=== PATIENT | female | born 1990 | race Caucasian/White ===

== ENCOUNTER 2018-01-30 13:11 | Outpatient (CLI) | payer MEDICAID ==
[2018-01-30 14:44] LABS: ADD UMIC YES; UR ASCORBIC ACID NEGATIVE (NEGATIVE); UR BACTERIA FEW /HPF (NONE SEEN); UR BILIRUBIN (Dip) NEGATIVE (NEGATIVE); UR BLOOD (Dip) 1+ mg/dL (NEGATIVE); UR CLARITY CLEAR (CLEAR); UR COLOR YELLOW (YELLOW); UR GLUCOSE (Dip) NEGATIVE (NEGATIVE); UR KETONES (Dip) NEGATIVE (NEGATIVE); UR LEUKOCYTE ESTERASE (Dip) 1+ Leu/ul (NEGATIVE); UR MUCUS FEW /HPF (NONE SEEN); UR NITRITE (Dip) NEGATIVE (NEGATIVE); UR RBC 1 /HPF (0-5); UR SPECIFIC GRAVITY (Dip) 1.016 (1.003-1.030); UR SQUAMOUS EPITHELIAL CELL FEW /HPF (FEW); UR TOTAL PROTEIN (Dip) NEGATIVE (NEGATIVE); UR UROBILINOGEN (Dip) NEGATIVE (NEGATIVE); UR WBC 5 /HPF (0-5)
== END 2018-01-30 15:50 | disposition home or self-care (01) ==
LOC: OBT 13:11 → L-D 13:11 → OBT 15:50
DX: O62.9 Abnormality of forces of labor, unspecified (principal); Z3A.32 32 weeks gestation of pregnancy
CPT/HCPCS: 81001; 82731

== ENCOUNTER 2018-02-13 10:41 | Outpatient (CLI) | payer MEDICAID | END 2018-02-13 12:56 | disposition home or self-care (01) | LOC: OBT 10:41 → L-D 10:41 → OBT 12:56 | DX: O62.9 Abnormality of forces of labor, unspecified (principal); O24.429 Gestational diabetes mellitus in childbirth, unspecified control; Z3A.34 34 weeks gestation of pregnancy | CPT/HCPCS: 76818 ==

== ENCOUNTER 2018-03-10 15:16 | Inpatient (IN) | payer MEDICAID ==
[~2018-03-10 15:16] MED LIST: EPHEDrine SULFATE 50 MG/5 ML SYG
[2018-03-10 16:45] LABS: ADD MAN DIFF? NO
[2018-03-10 16:48] LABS: BASOPHILS % 0.3 % (0.0-2.0); EOSINOPHILS # 0.1 10^3/ul (0.0-0.5); EOSINOPHILS % 0.4 % (0.0-7.0); HEMATOCRIT 38.5 % (37.0-47.0); HEMOGLOBIN 12.9 g/dl (12.0-16.0); LYMPHOCYTES # 2.2 10^3/ul (0.8-2.9); LYMPHOCYTES % 19.9 % (15.0-51.0); MEAN CORPUSCULAR HEMOGLOBIN 27.6 pg (29.0-33.0); MEAN CORPUSCULAR HGB CONC 33.5 g/dl (32.0-37.0); MEAN CORPUSCULAR VOLUME 82.3 fl (82.0-101.0); MEAN PLATELET VOLUME 10.9 fl (7.4-10.4); MONOCYTE # 0.8 10^3/ul (0.3-0.9); MONOCYTES % 7.3 % (0.0-11.0); NEUTROPHILS % 71.3 % (39.0-77.0); PLATELET COUNT 270 10^3/UL (140-415); RED BLOOD COUNT 4.68 10^6/ul (4.20-5.40); RED CELL DISTRIBUTION WIDTH 13.4 % (11.5-14.5)
[2018-03-10 16:48] LABS: WHITE BLOOD COUNT 11.3 10^3/ul (4.8-10.8)
[2018-03-10 17:07] LABS: PROTIME 11.1 Sec (11.9-14.9); PT RATIO 0.9
[2018-03-10 17:08] LABS: PARTIAL THROMBOPLASTIN TIME 25.8 Sec (25.0-35.0)
[2018-03-10 17:11] LABS: ALANINE AMINOTRANSFERASE 14 IU/L (13-69); ALBUMIN 3.5 g/dl (3.3-4.9); ALBUMIN/GLOBULIN RATIO 1.09; ALKALINE PHOSPHATASE 230 IU/L (42-121); ANION GAP 14 (8-16); ASPARTATE AMINO TRANSFERASE 18 IU/L (15-46); BILIRUBIN,INDIRECT 0.1 mg/dl (0-1.1); BILIRUBIN,TOTAL 0.1 mg/dl (0.2-1.3); BLOOD UREA NITROGEN 9 mg/dl (7-20); CALCIUM 9.7 mg/dl (8.4-10.2); CARBON DIOXIDE 22 mmol/L (21-31); CHLORIDE 106 mmol/L (97-110); CREATININE 0.56 mg/dl (0.44-1.00); GLUCOSE 91 mg/dl (70-220); POTASSIUM 4.2 mmol/L (3.5-5.1); SODIUM 138 mmol/L (135-144); TOTAL PROTEIN 6.7 g/dl (6.1-8.1); URIC ACID 5.8 mg/dl (3.1-7.9)
[2018-03-10 17:18] LABS: ADD UMIC YES; UR ASCORBIC ACID NEGATIVE (NEGATIVE); UR BILIRUBIN (Dip) NEGATIVE (NEGATIVE); UR BLOOD (Dip) NEGATIVE (NEGATIVE); UR CLARITY CLEAR (CLEAR); UR COLOR YELLOW (YELLOW); UR GLUCOSE (Dip) NEGATIVE (NEGATIVE); UR KETONES (Dip) NEGATIVE (NEGATIVE); UR LEUKOCYTE ESTERASE (Dip) TRACE Leu/ul (NEGATIVE); UR NITRITE (Dip) NEGATIVE (NEGATIVE); UR RBC 0 /HPF (0-5); UR SPECIFIC GRAVITY (Dip) 1.013 (1.003-1.030); UR TOTAL PROTEIN (Dip) NEGATIVE (NEGATIVE); UR UROBILINOGEN (Dip) NEGATIVE (NEGATIVE); UR WBC 1 /HPF (0-5)
[2018-03-10] MEDS: ACETAMINOPHEN 325 MG TAB PO (18:40)
[2018-03-10] MEDS ORDERED: METHYLERGONOVINE 0.2 MG INJ IM ×2 (20:30→21:00)
[2018-03-10] MEDS ORDERED: MISOPROSTOL 200 MCG TAB PR ×2 (20:30→21:00)
[2018-03-10] MEDS ORDERED: OXYTOCIN 30 UNITS/LR 500 ML IV ×2 (20:30→21:00)
[2018-03-10] MEDS ORDERED: BUTORPHANOL 2 MG INJ IV (20:30)
[2018-03-10] MEDS: MISOPROSTOL 100 MCG TAB PO (20:30)
[2018-03-10] MEDS ORDERED: LIDOCAINE 1% (MPF) 30 ML INJ INJ (20:30)
[2018-03-10] MEDS ORDERED: CARBOPROST 250 MCG INJ IM ×2 (20:30→21:00)
[2018-03-10] MEDS ORDERED: IBUPROFEN 600 MG TAB PO (20:30)
[2018-03-10] MEDS: LACTATED RINGER'S 1,000 ML IV* ×2 (20:56→22:14)
[2018-03-10] MEDS ORDERED: CA GLUCONATE (GM) 10% 10ML INJ IV (21:00)
[2018-03-10] MEDS ORDERED: ACCU-CHEK XX (21:00)
[2018-03-10 21:02] LABS: ADD MAN DIFF? NO
[2018-03-10] MEDS: MAGNESIUM SULFATE 4 GM/100 ML 100 ML IV (21:08)
[2018-03-10 21:26] LABS: INR 0.81; PROTIME 11.2 Sec (11.9-14.9); PT RATIO 0.9
[2018-03-10 21:27] LABS: PARTIAL THROMBOPLASTIN TIME 26.1 Sec (25.0-35.0)
[2018-03-10] MEDS: MAGNESIUM SULFATE 20 GM/500 ML 500 ML IV (21:40)
[2018-03-10 21:42] LABS: WHITE BLOOD COUNT 12.8 10^3/ul (4.8-10.8)
[2018-03-10 21:42] LABS: BASOPHIL # 0.1 10^3/ul (0.0-0.1); BASOPHILS % 0.4 % (0.0-2.0); EOSINOPHILS # 0.1 10^3/ul (0.0-0.5); EOSINOPHILS % 0.5 % (0.0-7.0); HEMATOCRIT 38.3 % (37.0-47.0); HEMOGLOBIN 13.2 g/dl (12.0-16.0); LYMPHOCYTES % 23.1 % (15.0-51.0); MEAN CORPUSCULAR HEMOGLOBIN 28.6 pg (29.0-33.0); MEAN CORPUSCULAR HGB CONC 34.5 g/dl (32.0-37.0); MEAN CORPUSCULAR VOLUME 83.1 fl (82.0-101.0); MEAN PLATELET VOLUME 11.1 fl (7.4-10.4); MONOCYTE # 0.9 10^3/ul (0.3-0.9); MONOCYTES % 7.1 % (0.0-11.0); NEUTROPHIL # 8.7 10^3/ul (1.6-7.5); PLATELET COUNT 263 10^3/UL (140-415); RED BLOOD COUNT 4.61 10^6/ul (4.20-5.40); RED CELL DISTRIBUTION WIDTH 13.2 % (11.5-14.5)
[2018-03-10] MEDS: LABETALOL HCL 20MG INJ IV (21:42)
[2018-03-10] MEDS ORDERED: morphine SULFATE/PF (10 MG/10 ML) INJ (21:51)
[2018-03-10] MEDS ORDERED: BUPIVACAINE 0.75%/DEXT (SPINAL) 2 ML INJ (21:51)
[2018-03-10] MEDS ORDERED: PHENYLephrine (100 MCG/ML) 5ML SYG ×2 (21:51→23:24)
[2018-03-10] MEDS ORDERED: OXYTOCIN 10 UNIT INJ (21:51)
[2018-03-10 21:56] LABS: HEPATITIS B SURFACE ANTIGEN NEGATIVE (NEGATIVE)
[2018-03-10] MEDS: AMPICILLIN 2 GM/NS (PMX) 100 ML IV (22:00)
[2018-03-10] MEDS: ONDANSETRON 4 MG INJ IV (22:06)
[2018-03-10] MEDS: METOCLOPRAMIDE 10 MG INJ IV (22:06)
[2018-03-10] MEDS: CITRIC ACID/SODIUM CITRATE 15 ML CUP PO (22:07)
[2018-03-10] MEDS ORDERED: KETOROLAC 30 MG INJ (23:07)
[2018-03-10] MEDS ORDERED: DEXAMETHASONE 4 MG/ML 1 ML INJ (23:07)
[2018-03-10] MEDS ORDERED: ACETAMINOPHEN 500 MG TAB PO (23:30)
[2018-03-10] MEDS ORDERED: morphine 2 MG INJ IV ×2 (23:30)
[2018-03-10] MEDS ORDERED: HYDROCODONE/APAP (5/325) TAB PO (23:30)
[2018-03-10] MEDS ORDERED: ONDANSETRON 4 MG INJ IV (23:30)
[2018-03-10] MEDS ORDERED: HYDROmorphONE 0.5 MG/0.5 ML SYG IV ×2 (23:30)
[2018-03-10] MEDS ORDERED: NALBUPHINE HCL (10 MG/1 ML) INJ IV (23:30)
[2018-03-10] MEDS ORDERED: NALOXONE (0.4 MG/ML) INJ IV (23:30)
[2018-03-10] MEDS ORDERED: DIPHENHYDRAMINE 50 MG INJ IV (23:30)
[2018-03-10] MEDS: CEFAZOLIN 2 GM/50 ML (PMX) 50 ML IV (23:34)
[2018-03-10] MEDS: OXYTOCIN 30 UNITS/LR 500 ML IV (23:35)
[2018-03-11] MEDS ORDERED: DEXTROSE 5%-LR 1,000 ML IV (00:16)
[2018-03-11] MEDS ORDERED: METHYLERGONOVINE 0.2 MG TAB PO (00:30)
[2018-03-11] MEDS ORDERED: METHYLERGONOVINE 0.2 MG INJ IM (00:30)
[2018-03-11] MEDS ORDERED: AMPICILLIN 1 GM/NS (PMX) 50 ML IV (00:30)
[2018-03-11] MEDS ORDERED: MISOPROSTOL 200 MCG TAB PR (00:30)
[2018-03-11] MEDS ORDERED: LANOLIN 7 GM TUBE TOP (00:30)
[2018-03-11] MEDS ORDERED: CARBOPROST 250 MCG INJ IM (00:30)
[2018-03-11] MEDS: OXYTOCIN 30 UNITS/LR 500 ML IV ×3 (00:43→10:21)
[2018-03-11 01:14] LABS: MAGNESIUM 4.1 mg/dl (1.7-2.5)
[2018-03-11] MEDS: SENNA/DOCUSATE NA (8.6MG/50MG) TAB PO ×2 (08:28→22:23)
[2018-03-11] MEDS: MAGNESIUM SULFATE 20 GM/500 ML 500 ML IV (08:30)
[2018-03-11 08:53] LABS: MAGNESIUM 4.8 mg/dl (1.7-2.5)
[2018-03-11 13:31] LABS: MAGNESIUM 5.1 mg/dl (1.7-2.5)
[2018-03-11 15:12] LABS: RAPID PLASMA REAGIN NONREACTIVE (NR)
[2018-03-11 17:54] LABS: MAGNESIUM 4.3 mg/dl (1.7-2.5)
[2018-03-11] MEDS: KETOROLAC 30 MG INJ IV (22:18)
[2018-03-11] MEDS ORDERED: OXYCODONE/ACETAMINOPHEN (5/325) TAB PO (22:32)
[2018-03-12] MEDS ORDERED: HYDROCODONE/APAP (5/325) TAB PO (06:00)
[2018-03-12] MEDS: IBUPROFEN 800 MG TAB PO ×3 (06:24→21:36)
[2018-03-12] MEDS: MAGNESIUM SULFATE 20 GM/500 ML 500 ML IV (07:38)
[2018-03-12 08:33] LABS: ADD MAN DIFF? NO
[2018-03-12 08:39] LABS: BASOPHILS % 0.3 % (0.0-2.0); EOSINOPHILS # 0.1 10^3/ul (0.0-0.5); EOSINOPHILS % 0.6 % (0.0-7.0); HEMATOCRIT 32.5 % (37.0-47.0); HEMOGLOBIN 10.9 g/dl (12.0-16.0); LYMPHOCYTES # 1.9 10^3/ul (0.8-2.9); LYMPHOCYTES % 22.3 % (15.0-51.0); MEAN CORPUSCULAR HEMOGLOBIN 27.9 pg (29.0-33.0); MEAN CORPUSCULAR HGB CONC 33.5 g/dl (32.0-37.0); MEAN CORPUSCULAR VOLUME 83.3 fl (82.0-101.0); MEAN PLATELET VOLUME 10.6 fl (7.4-10.4); MONOCYTE # 0.7 10^3/ul (0.3-0.9); MONOCYTES % 8.2 % (0.0-11.0); NEUTROPHIL # 5.9 10^3/ul (1.6-7.5); NEUTROPHILS % 67.7 % (39.0-77.0); PLATELET COUNT 241 10^3/UL (140-415); RED CELL DISTRIBUTION WIDTH 13.5 % (11.5-14.5)
[2018-03-12 08:39] LABS: WHITE BLOOD COUNT 8.7 10^3/ul (4.8-10.8)
[2018-03-12] MEDS: SENNA/DOCUSATE NA (8.6MG/50MG) TAB PO ×2 (08:57→21:14)
[2018-03-12] MEDS: HYDROCODONE/APAP (5/325) TAB PO ×2 (14:00→21:36)
[2018-03-12] MEDS: OXYCODONE/ACETAMINOPHEN (5/325) TAB PO (16:01)
[2018-03-13] MEDS: HYDROCODONE/APAP (5/325) TAB PO ×4 (05:53→21:22)
[2018-03-13] MEDS: IBUPROFEN 800 MG TAB PO ×3 (05:53→21:21)
[2018-03-13] MEDS: SENNA/DOCUSATE NA (8.6MG/50MG) TAB PO ×2 (11:13→21:21)
[2018-03-13] MEDS: DIPHTH/TET/ACEL PERTUSS (ADULT) 0.5 ML VIAL IM* (16:50)
[2018-03-14] MEDS: IBUPROFEN 800 MG TAB PO (05:33)
[2018-03-14] MEDS: HYDROCODONE/APAP (5/325) TAB PO (05:34)
[2018-03-14] MEDS ORDERED: MEASLES,MUMPS,RUBELLA VACCINE INJ SC* (09:00)
[2018-03-14] MEDS ORDERED: DIPHTH/TET/ACEL PERTUSS (ADULT) 0.5 ML VIAL IM* (09:00)
[2018-03-14] MEDS: SENNA/DOCUSATE NA (8.6MG/50MG) TAB PO (09:03)
== END 2018-03-14 12:25 | disposition home or self-care (01) | DRG 766 ==
LOC: OBT 15:16 → PP1 03-11 03:01 → L-D 15:19 → OBT 18:10 → PP1 03-12 13:11 → L-D 18:10
PROC: 10D00Z1 Extraction of Products of Conception, Low, Open Approach (ICD-10-PCS; principal; 2018-03-11)
PROC: 3E033VJ Introduction of Other Hormone into Peripheral Vein, Percutaneous Approach (ICD-10-PCS; 2018-03-11)
DX: O24.429 Gestational diabetes mellitus in childbirth, unspecified control (principal); O14.14 Severe pre-eclampsia complicating childbirth; O13.4 Gestational [pregnancy-induced] hypertension without significant proteinuria, complicating childbirth; O69.81X0 Labor and delivery complicated by cord around neck, without compression, not applicable or unspecified; O33.9 Maternal care for disproportion, unspecified; Z3A.38 38 weeks gestation of pregnancy; Z37.0 Single live birth
CPT/HCPCS: 36415; 76815; 76818; 80053; 81001; 83735; 84560; 85025; 85384; 85610; 85730; 86592; 86850; 86900; 86901; 87340; 90715; 99464